=== PATIENT | male | born 2005 | race Two or more races ===

== ENCOUNTER 2025-03-12 04:53 | Emergency (ER) | payer OTHER, MEDICAID ==
[~2025-03-12] VITALS: Ht 175.3 cm; Wt 72.2 kg
[2025-03-12 05:22] VITALS: BP 131/80; PULSE 87; RESP 16; TEMP 98.4; O2SAT 98
== END 2025-03-12 08:06 | disposition left against medical advice (07) ==
LOC: ER 04:53
DX: R07.81 Pleurodynia (principal); Z53.21 Procedure and treatment not carried out due to patient leaving prior to being seen by health care provider